=== PATIENT | male | born 1975 | race African-American/Black ===

== ENCOUNTER 2018-07-18 11:38 | Emergency (ER) | payer SELFPAY ==
[2018-07-18] MEDS ORDERED: RABIES VACCINE (PCEC)/PF 2.5 UNIT/1 ML KIT IM ONE (12:58)
[2018-07-18] MEDS ORDERED: RABIES IMMUNE GLOBULIN INJ/PF 300 UNIT/2 ML SDV IM ONE (12:58)
--- NOTE | 2018-07-18 12:58 | ER Document Report ---
HPI - HPI Pain Level: 2 Notes: Patient is a 43-year-old male who presents with chief complaint of dog bite to his left face. Patient reports he has been feeding a stray dog for several days now, this patient states he think he spooked the dog. Dog was not showing bizarre behavior. Unknown immunization status of dog. - CONSTITUTIONAL Constitutional: DENIES: Fever, Chills - EENT EENT: DENIES: Sore Throat, Ear Pain, Eye problems - NEURO Neurology: DENIES: Headache, Weakness, Vision blurred, Dizzinesss / Vertigo - CARDIOVASCULAR Cardiovascular: DENIES: Chest pain - RESPIRATORY Respiratory: DENIES: Trouble Breathing, Coughing - GASTROINTESTINAL Gastrointestinal: DENIES: Abdominal Pain, Black / Bloody Stools - URINARY Urinary: DENIES: Dysuria, Urgency, Frequency - MUSCULOSKELETAL Musculoskeletal: DENIES: Extremity pain Past Medical History - General Information source: Patient - Social History Smoking Status: Current Every Day Smoker Chew tobacco use (# tins/day): No Frequency of alcohol use: Occasional Drug Abuse: Marijuana Family History: Reviewed & Not Pertinent Patient has suicidal ideation: No Patient has homicidal ideation: No - Past Medical History Cardiac Medical History: Reports: Hx Hypertension Renal/ Medical History: Denies: Hx Peritoneal Dialysis Surgical Hx: Negative - Immunizations Immunizations up to date: Yes Vertical Provider Document - CONSTITUTIONAL Notes: PHYSICAL EXAMINATION: GENERAL: Well-appearing, well-nourished and in no acute distress. HEAD: Atraumatic, normocephalic. EYES: Pupils equal round extraocular movements intact, conjunctiva are normal. ENT: Nares patent NECK: Normal range of motion LUNGS: No respiratory distress Musculoskeletal: Normal range of motion NEUROLOGICAL: Normal speech, normal gait. PSYCH: Normal mood, normal affect. SKIN: Scattered abrasions/superficial puncture wounds noted to left side of face , all of them are superficial. - INFECTION CONTROL TRAVEL OUTSIDE OF THE [place] IN LAST 30 DAYS: No Course - Re-evaluation Re-evalutation: Wounds cleaned thoroughly with saline and Shur-Clens. Antibiotic ointment applied. Patient will be discharged home after administration of rabies prophylaxis, patient placed on Augmentin. - Vital Signs Vital signs: Temp Pulse Resp BP Pulse Ox 98.1 F 79 18 105/64 98 07/18/18 11:48 07/18/18 11:48 07/18/18 11:48 07/18/18 11:48 07/18/18 11:48 Discharge - Discharge Clinical Impression: Dog bite Qualifiers: Encounter type: initial encounter Qualified Code(s): W54.0XXA - Bitten by dog, initial encounter Condition: Stable Disposition: HOME, SELF-CARE Additional Instructions: Animal Bites Animal bites are often heavily contaminated with bacteria. In spite of thorough cleansing and proper treatment, these wounds frequently become infected. Bite wounds of the hands are especially prone to complications. Bites are dressed, if possible. Large wounds may require suturing after internal cleansing. Because of infection risk, some large wounds must remain unstitched. Your doctor is trained to advise you on the best treatment for your bite. Call the doctor at once if the wound becomes red, swollen, warm, increasingly painful, or if it begins to drain. Danger signs also include red streaks up the involved extremity, swollen glands in the groin or under the arm , or fever and chills. The risk of rabies from domestic animals is very low. Bats, sick animals, and wild animals may expose you to rabies. The physician, or the health department, will inform you if you will need to receive the rabies vaccine. Rabies Prophyllaxis Rabies immunization can prevent infection with the rabies virus. This virus is always fatal if it reaches the nervous system. Exposure to an infected animal's saliva requires a series of shots. If you're already immunized, you may need only a booster shot. It's critical for you to follow the exact schedule of immunizations. After the first shot, we give repeat doses in 3 days, 7 days, 14 days, and 28 days. The repeat doses can also be given through the Health Department or by special arrangement with your doctor. Ibuprofen or acetaminophen can be used for aching and swelling at the injection site. Call the doctor or return if you develop increasing pain, fever , chills, or spreading redness, or if you become short of breath or faint. Please take antibiotics as prescribed. Make sure to complete the entire course. Return to the emergency department if you develop any of the above symptoms of infection to the area. Keep the area clean and dry. Return for continued rabies vaccines as outlined on your paperwork. The next dose will be 3 days from now. Prescriptions: Amox Tr/Potassium Clavulanate [Augmentin 875-125 mg Tablet] 1 tab PO BID #20 tablet
[2018-07-21] MEDS ORDERED: RABIES VACCINE (PCEC)/PF 2.5 UNIT/1 ML KIT IM ONE (20:00)
[2018-07-25] MEDS ORDERED: RABIES VACCINE (PCEC)/PF 2.5 UNIT/1 ML KIT IM ONE (18:36)
[2018-07-25 18:50] VITALS: BP 127/75
== END 2018-07-18 13:52 | disposition home or self-care (01) ==
LOC: ER 11:38
DX: S01.85XA Open bite of other part of head, initial encounter (principal); W54.0XXA Bitten by dog, initial encounter; F17.200 Nicotine dependence, unspecified, uncomplicated; I10 Essential (primary) hypertension
CPT/HCPCS: 90376; 90471; 90675; 96372; 99283